=== PATIENT | female | born 2000 | race African-American/Black ===

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

== ENCOUNTER → 2022-04-16 19:49 | Emergency (ER) | payer OTHER, MEDICAID | END | disposition left against medical advice (07) | LOC: ER 19:49 | DX: R05.9 Cough, unspecified (principal); R09.81 Nasal congestion; Z53.21 Procedure and treatment not carried out due to patient leaving prior to being seen by health care provider ==

== ENCOUNTER 2022-04-22 11:31 | Emergency (ER) | payer OTHER, MEDICAID ==
[~2022-04-22] VITALS: Ht 167.6 cm; Wt 90.0 kg
[2022-04-22 12:59] VITALS: BP 130/95
[2022-04-22] MEDS ORDERED: ALBUTEROL SULF 2.5 MG/0.5ML(0.5%) NEB SOLN NEB ONE (13:15)
[2022-04-22] MEDS ORDERED: IPRATROPIUM BROM 0.5 MG/2.5ML INH SOL NEB ONE (13:15)
[2022-04-22] MEDS ORDERED: PROM1SOL4 PO (14:11)
[2022-04-22] MEDS ORDERED: AZIT500T66 PO (14:11)
[2022-04-22] MEDS ORDERED: ALBU108A5 IN (14:11)
== END 2022-04-22 14:37 | disposition home or self-care (01) ==
LOC: ER 11:31
DX: R05.9 Cough, unspecified (principal); J20.9 Acute bronchitis, unspecified; R07.89 Other chest pain
CPT/HCPCS: 71046; 93005; 94640; 99283; J7644

== ENCOUNTER 2024-01-01 14:17 | Emergency (ER) | payer OTHER, MEDICAID ==
[~2024-01-01] VITALS: Ht 172.7 cm; Wt 99.7 kg
[~2024-01-01 14:17] MED LIST: ALBU108A5 IN; AZIT500T66 PO; PROM1SOL4 PO
[2024-01-01] MEDS ORDERED: CYCL-837 PO (15:17)
[2024-01-01] MEDS ORDERED: IBUP-1455 PO (15:17)
[2024-01-01 15:21] VITALS: BP 140/90; PULSE 85; RESP 16; TEMP 98; O2SAT 98
== END 2024-01-01 15:18 | disposition home or self-care (01) ==
LOC: ER 14:25
DX: S16.1XXA Strain of muscle, fascia and tendon at neck level, initial encounter (principal); M54.50 Low back pain, unspecified; M25.512 Pain in left shoulder; V43.62XA Car passenger injured in collision with other type car in traffic accident, initial encounter; Y93.89 Activity, other specified; Y92.488 Other paved roadways as the place of occurrence of the external cause; Y99.8 Other external cause status

== ENCOUNTER 2024-11-18 16:23 | Emergency (ER) | payer MEDICAID, OTHER ==
[~2024-11-18] VITALS: Ht 170.2 cm; Wt 100.1 kg
[~2024-11-18 16:23] MED LIST changes: +CYCL-837 PO; +IBUP-1455 PO
[2024-11-18 16:32] VITALS: BP 129/68; PULSE 97; RESP 16; TEMP 98.7; O2SAT 97
[2024-11-18] MEDS ORDERED: IBUP-1455 PO (17:09)
[2024-11-18] MEDS ORDERED: AUG875T PO (17:09)
[2024-11-18] MEDS ORDERED: ACET500T58 PO (17:09)
--- NOTE | 2024-11-18 17:10 | ED.PDOC ---
Eye-HPI HPI Comments Patient is a pleasant but morbidly obese 24-year-old female who arrives the ED today for evaluation of a upper left-sided dental concern that has been ongoing for the past week. Patient states she has had pain and swelling in the left upper portion of her dentition. Patient denies any fever nausea or vomiting. Patient states she contacted her dentist, but she does not have an appointment for at least a week. Vital signs were stable at arrival. Chief Complaint: Tooth Pain Time Seen by MD: 17:02 Primary Care Provider: NONE Reviewed Notes: Nurses Notes Allergies: Coded Allergies: NO KNOWN ALLERGIES (Unverified , 03/13/19) Home Meds Active Scripts Ibuprofen Micronized (Ibuprofen) 800 Mg Tab, 800 MG PO TID PRN, #40 TAB Prov:BERNARDO CALZADA 01/01/24 Cyclobenzaprine Hcl (Cyclobenzaprine Hcl) 5 Mg Tab, 1 TAB PO QPM PRN, #30 TAB Prov:BERNARDO CALZADA 01/01/24 Promethazine-Dm (Promethazine Dm 6.25-15 mg/5Ml) 1 Moira Moira, 5 ML PO TID, #150 ML Prov:MANUEL KERN 04/22/22 Albuterol Sulfate (Albuterol Sulfate Hfa) 108 Mcg/Act Aer, 108 MCG IN DAILY, #90 AER Prov:MANUEL KERN 04/22/22 Azithromycin (Azithromycin) 500 Mg Tab, 1 TAB PO DAILY, #5 TAB Prov:MANUEL KERN 04/22/22 Information Source: Patient Mode of Arrival: Ambulatory Timing: Weeks Duration: Since onset Quality: Pain Past Medical History PAST MEDICAL HISTORY: Denies Surgical History: Denies all surgeries CRUSHER History: Denies all CRUSHER Hx Family History Family History: Reviewed,noncontributory to illness Social History Smoker: Non-Smoker Alcohol: Denies ETOH Use Drugs: Denies Drug Use Lives In: Home Constitutional: denies: chills, diaphoresis, fatigue, fever, malaise, sweats, weakness, others EENTM: reports: others (Upper left-sided dental pain and swelling); denies: blurred vision, double vision, ear bleeding, ear discharge, ear drainage, ear pain, ear ringing, eye pain, eye redness, hearing loss, mouth pain, mouth swelling, nasal discharge, nose bleeding, nose congestion, nose pain, photophobia, tearing, throat pain, throat swelling, voice changes Respiratory: denies: cough, hemoptysis, orthopnea, SOB at rest, shortness of breath, SOB with excertion, stridor, wheezing, others Cardiovascular: denies: chest pain, dizzy spells, diaphoresis, Dyspnea on exertion, edema, irregular heart beat, left arm pain, lightheadedness, palpitations, PND, syncope, others Gastrointestinal: denies: abdomen distended, abdominal pain, blood streaked bowels, constipated, diarrhea, dysphagia, difficulty swallowing, hematemesis, melena, nausea, poor appetite, poor fluid intake, rectal bleeding, rectal pain, vomiting, others Genitourinary: denies: abnormal vagina bleeding, burning, dyspareunia, dysuria, flank pain, frequency, hematuria, incontinence, pain, , vagina discharge, urgency, others Neurological: denies: dizziness, fainting, headache, left sided numbness, left sided weakness, numbness, paresthesia, pre-existing deficit, right sided numbness, right sided weakness, seizure, speech problems, tingling, tremors, weakness, others Musculoskeletal: denies: back pain, gout, joint pain, joint swelling, muscle pain, muscle stiffness, neck pain, others Integumetry: denies: bruises, change in color, change in hair/nails, dryness, laceration, lesions, lumps, rash, wounds, others Allergic/Immunocompromised: denies: Difficulty Healing, Frequent Infections, Hives, Itching, others Hematologic/Lymphatic: denies: anemia, blood clots, easy bleeding, easy bruising, swollen glands, others Endocrine: denies: excessive hunger, excessive sweating, excessive thirst, excessive urination, flushing, intolerance to cold, intolerance to heat, unexplained weight gain, unexplained weight loss, others Psychiatric: denies: anxiety, bipolar disorder, depression, hopeless, panic disorder, schizophrenia, sleepless, suicidal, others Physical Exam General Appearance: Mild Distress (Moderate distress due to dental concerns. Patient declined the need for any pain medication while at the facility.), Obese HEENT: Pharynx Normal, TMs Normal, Other (Patient displays a developing abscess to tooth 13. Possible fracture noted. Localized edema and erythema. No ex pressive pus noted. Mild facial swelling. ) Neck: Full Range of Motion, Non-Tender, Normal, Normal Inspection Respiratory: Chest Non-Tender, Lungs Clear, No Accessory Muscle Use, No Respiratory Distress, Normal Breath Sounds Cardiovascular: No Edema, No JVD, No Murmur, No Gallop, Normal Peripheral Pulses, Regular Rate/Rhythm Breast Exam: Deferred Gastrointestinal: No Organomegaly, Non Tender, No Pulsatile Mass, Normal Bowel Sounds, Soft Genitalia: Deferred Pelvic: Deferred Rectal: Deferred Extremities: No calf tenderness, Normal capillary refill, Normal inspection, Normal range of motion, Non-tender, No pedal edema Neurologic: Alert, No Motor Deficits, Normal Affect, Normal Mood, No Sensory Deficits Cerebellar Function: Normal Reflexes: Normal Skin: Dry, Normal Color, Warm Lymphatic: No Adenopathy Was a procedure done? Was a procedure done?: No EENT DIFF Eye: N/A Mouth: Other (Dental abscess, dental homar, dental fracture) X-Ray, Labs, Meds, VS Vital Signs Date Time Temp Pulse Resp B/P (MAP) Pulse Ox O2 Delivery O2 Flow Rate FiO2 11/18/24 16:32 98.7 97 16 129/68 (88) 97 98.7 X-Ray, Labs, Meds, VS Comment Discussed the patient's complaints with her. Advised that she needs to utilize her antibiotics as directed until completion and additionally, follow up with her dentist for definitive evaluation and management. Time of 1ST Reevaluation: 17:08 Reevaluation 1ST: Unchanged Consultation: PCP, Other (Dentist) Patient Education/Counseling: Diagnosis, Treatment Family Education/Counseling: Diagnosis, Treatment Departure 1 Departure Time of Disposition: 17:08 Impression: Primary Impression: Dental abscess Disposition: 01 HOME / SELF CARE / HOMELESS Condition: Stable Additional Instructions: Advise utilizing antibiotics as directed until completion. Pain medication as needed. Patient needs to follow up with dentist for definitive evaluation and management. e-Prescriptions Acetaminophen (Acetaminophen) 500 Mg Tab 500 MG PO Q4HP PRN, #30 TAB Prov: JUAN DILL PAC 11/18/24 Ibuprofen Micronized (Ibuprofen) 800 Mg Tab 800 MG PO Q8HP PRN, #30 TAB Prov: JUAN DILL PAC 11/18/24 Amoxicillin & Pot Clavulanate (AUGMENTIN TABLET) 875 Mg Tb 875 MG PO BID for 10 Days, #20 TAB Prov: JUAN DILL PAC 11/18/24 Discharged With: Self Critical Care Note Critical Care Time?: No Stability Stability form required: No Heart Score Heart Score: Heart Score Response (Comments) Value History N/A 0 EKG N/A 0 Age N/A 0 Risk Factors N/A 0 Troponin N/A 0 Total 0 JUAN DILL PAC Nov 18, 2024 17:10
== END 2024-11-18 17:17 | disposition home or self-care (01) ==
LOC: ER 16:25
DX: K04.7 Periapical abscess without sinus (principal); E66.01 Morbid (severe) obesity due to excess calories; Z79.899 Other long term (current) drug therapy

== ENCOUNTER 2024-12-18 14:05 | Emergency (ER) | payer MEDICAID ==
[~2024-12-18] VITALS: Ht 170.2 cm; Wt 97.7 kg
[~2024-12-18 14:05] MED LIST changes: +ACET500T58 PO; +AUG875T PO
[2024-12-18] MEDS ORDERED: PRED20TA2 PO (15:21)
--- NOTE | 2024-12-18 15:21 | ED.PDOC ---
Eye-HPI HPI Comments Left tooth Chief Complaint: Tooth Pain Time Seen by MD: 14:13 Primary Care Provider: NONE Allergies: Coded Allergies: NO KNOWN ALLERGIES (Unverified , 03/13/19) Home Meds Active Scripts Acetaminophen (Acetaminophen) 500 Mg Tab, 500 MG PO Q4HP PRN, #30 TAB Prov:JUAN DILL PAC 11/18/24 Ibuprofen Micronized (Ibuprofen) 800 Mg Tab, 800 MG PO Q8HP PRN, #30 TAB Prov:ANIYAHJUAN KAY PAC 11/18/24 Amoxicillin & Pot Clavulanate (AUGMENTIN TABLET) 875 Mg Tb, 875 MG PO BID for 10 Days, #20 TAB Prov:ANIYAHJUAN KAY PAC 11/18/24 Ibuprofen Micronized (Ibuprofen) 800 Mg Tab, 800 MG PO TID PRN, #40 TAB Prov:BERNARDO CALZADA IT ARCHITECTURE ANALYST 01/01/24 Cyclobenzaprine Hcl (Cyclobenzaprine Hcl) 5 Mg Tab, 1 TAB PO QPM PRN, #30 TAB Prov:BERNARDO CALZADA IT ARCHITECTURE ANALYST 01/01/24 Promethazine-Dm (Promethazine Dm 6.25-15 mg/5Ml) 1 Moira Moira, 5 ML PO TID, #150 ML Prov:MANUEL KERN 04/22/22 Albuterol Sulfate (Albuterol Sulfate Hfa) 108 Mcg/Act Aer, 108 MCG IN DAILY, #90 AER Prov:MANUEL KERN 04/22/22 Azithromycin (Azithromycin) 500 Mg Tab, 1 TAB PO DAILY, #5 TAB Prov:MANUEL KERN 04/22/22 Mode of Arrival: Ambulatory Past Medical History PAST MEDICAL HISTORY: Denies Surgical History: Denies all surgeries GRANULATOR History: Denies all GRANULATOR Hx Family History Family History: Reviewed,noncontributory to illness Social History Smoker: Non-Smoker Alcohol: Denies ETOH Use Drugs: Denies Drug Use Lives In: Home X-Ray, Labs, Meds, VS Vital Signs Date Time Temp Pulse Resp B/P (MAP) Pulse Ox O2 Delivery O2 Flow Rate FiO2 12/18/24 14:22 98.7 8 20 118/73 (88) 97 98.7 SEPSIS Sepsis Screen Date sepsis recognized/suspect: Dec 18, 2024 Time Sepsis recognized/suspect: 1421 Recent Procedure: No On Antibiotic Therapy: No Respiratory Rate >20: No Heart Rate >90: No Temp<36 C (96.8 F) or >38.3 C: No SBP <90 or MAP <65 mmHG: No New Acute Mental Status Change: No Is the patient on CPAP, BIPAP,: No Vital Signs Date Time Temp Pulse Resp B/P (MAP) Pulse Ox O2 Delivery O2 Flow Rate FiO2 12/18/24 14:22 98.7 8 20 118/73 (88) 97 98.7 Departure 1 Departure Time of Disposition: 15:20 Impression: Primary Impression: Swelling of face Disposition: 01 HOME / SELF CARE / HOMELESS Condition: Stable e-Prescriptions Prednisone (Prednisone) 20 Mg Tab 40 MG PO DAILY for 5 Days, #10 TAB 0 Refills Prov: VILMA AN NP 12/18/24 VILMA AN NP Dec 18, 2024 15:21
--- NOTE | 2024-12-18 15:26 | ED.PDOC ---
Eye-HPI HPI Comments 24 year old female with no past medical history presents to the emergency department with a chief complaint of tooth pain onset 3 days. Patient began experiencing Lt sided tooth pain for the past 3 days, was seen at urgent care and prescribed antibiotics. Patient noticed swelling, abscess by tooth. Patient was prescribed [id number] by urgent care. Has a dental appointment on 12/21/24 at [facility]. No other symptoms or modifying factors present at this time. Denies fevers, chills, nausea, vomiting, sweats Denies headache, dizziness, blurry vision Chief Complaint: Tooth Pain Time Seen by MD: 15:00 Primary Care Provider: NONE Reviewed Notes: Nurses Notes, Medications, Allergies Allergies: Coded Allergies: NO KNOWN ALLERGIES (Unverified , 03/13/19) Home Meds Active Scripts Prednisone (Prednisone) 20 Mg Tab, 40 MG PO DAILY for 5 Days, #10 TAB 0 Refills Prov:VILMA AN SUBSTANCE ABUSE THERAPIST 12/18/24 Acetaminophen (Acetaminophen) 500 Mg Tab, 500 MG PO Q4HP PRN, #30 TAB Prov:JUAN DILL PAC 11/18/24 Ibuprofen Micronized (Ibuprofen) 800 Mg Tab, 800 MG PO Q8HP PRN, #30 TAB Prov:JUAN DILL PAC 11/18/24 Amoxicillin & Pot Clavulanate (AUGMENTIN TABLET) 875 Mg Tb, 875 MG PO BID for 10 Days, #20 TAB Prov:JUAN DILL PAC 11/18/24 Ibuprofen Micronized (Ibuprofen) 800 Mg Tab, 800 MG PO TID PRN, #40 TAB Prov:BERNARDO CALZADAP 01/01/24 Cyclobenzaprine Hcl (Cyclobenzaprine Hcl) 5 Mg Tab, 1 TAB PO QPM PRN, #30 TAB Prov:BERNARDO CALZADAP 01/01/24 Promethazine-Dm (Promethazine Dm 6.25-15 mg/5Ml) 1 Moira Moira, 5 ML PO TID, #150 ML Prov:MANUEL KERN 04/22/22 Albuterol Sulfate (Albuterol Sulfate Hfa) 108 Mcg/Act Aer, 108 MCG IN DAILY, #90 AER Prov:MANUEL KERN 04/22/22 Azithromycin (Azithromycin) 500 Mg Tab, 1 TAB PO DAILY, #5 TAB Prov:MANUEL KERN 04/22/22 Information Source: Patient Mode of Arrival: Ambulatory Timing: Days Prehospital treatment: Treatment (antibiotics) Quality: Pain Lids: Normal Conjunctiva: Normal Cornea: Normal Pupils: Normal EOM: Normal Fundus: Normal Slit lamp exam: Normal Anterior chamber: Normal Nose: Normal Sinuses: Normal Oropharynx: Normal Onset: Spontaneous Past Medical History PAST MEDICAL HISTORY: Denies Surgical History: Denies all surgeries HOT MIX OPERATOR History: Denies all HOT MIX OPERATOR Hx Family History Family History: Reviewed,noncontributory to illness Social History Smoker: Non-Smoker Alcohol: Denies ETOH Use Drugs: Denies Drug Use Lives In: Home EENTM: reports: others (LT sided tooth pain) Physical Exam General Appearance: Normal HEENT: Normal ENT Inspection, Pharynx Normal, TMs Normal Neck: Full Range of Motion, Non-Tender, Normal, Normal Inspection Respiratory: Chest Non-Tender, Lungs Clear, No Accessory Muscle Use, No Respiratory Distress, Normal Breath Sounds Cardiovascular: No Edema, No JVD, No Murmur, No Gallop, Normal Peripheral Pulses, Regular Rate/Rhythm Breast Exam: Deferred Gastrointestinal: No Organomegaly, Non Tender, No Pulsatile Mass, Normal Bowel Sounds, Soft Genitalia: Deferred Pelvic: Deferred Rectal: Deferred Extremities: No calf tenderness, Normal capillary refill, Normal inspection, Normal range of motion, Non-tender, No pedal edema Musculoskeletal : Apperance: Normal Neurologic: Alert, armoring machine operator II-XII nml as Tested, No Motor Deficits, Normal Affect, Normal Mood, No Sensory Deficits Cerebellar Function: Normal Reflexes: Normal Skin: Dry, Normal Color, Warm Lymphatic: No Adenopathy Was a procedure done? Was a procedure done?: No X-Ray, Labs, Meds, VS Vital Signs Date Time Temp Pulse Resp B/P (MAP) Pulse Ox O2 Delivery O2 Flow Rate FiO2 12/18/24 14:22 98.7 8 20 118/73 (88) 97 98.7 X-Ray, Labs, Meds, VS Comment 24 year old female with no past medical history presents to the emergency department with a chief complaint of tooth pain onset 3 days. Patient arrives alert and oriented, ABC's intact, afebrile, vital signs stable, saturating well in room air Additional MDM Review of External, Non-ED records: External records reviewed. Discussion with independent historian (EMS, family) history obtained from the patient/parents (if applicable) at bedside Chronic conditions affecting care: None Social determinants of health affecting care: None Consideration of admission (observation or admission): I considered escalation of care to admission for this patient, however given the reassuring workup, the patient is safe for outpatient management. Time of 1ST Reevaluation: 15:30 Reevaluation 1ST: Improved Patient Education/Counseling: Diagnosis, Treatment Family Education/Counseling: No Family Present SEPSIS Sepsis Screen Date sepsis recognized/suspect: Dec 18, 2024 Time Sepsis recognized/suspect: 1421 Recent Procedure: No On Antibiotic Therapy: No Respiratory Rate >20: No Heart Rate >90: No Temp<36 C (96.8 F) or >38.3 C: No SBP <90 or MAP <65 mmHG: No New Acute Mental Status Change: No Is the patient on CPAP, BIPAP,: No Vital Signs Date Time Temp Pulse Resp B/P (MAP) Pulse Ox O2 Delivery O2 Flow Rate FiO2 12/18/24 14:22 98.7 8 20 118/73 (88) 97 98.7 Departure 1 Departure e-Prescriptions Prednisone (Prednisone) 20 Mg Tab 40 MG PO DAILY for 5 Days, #10 TAB 0 Refills Prov: VILMA AN NP 12/18/24 Critical Care Note Critical Care Time?: No Stability Stability form required: No Heart Score Heart Score: Heart Score Response (Comments) Value History N/A 0 EKG N/A 0 Age N/A 0 Risk Factors N/A 0 Troponin N/A 0 Total 0 I personally scribed for VILMA AN NP ([email or web address]) on 12/18/24 at 15:26. Electronically submitted by Candace May ([email or web address]). VILMA AN NP Dec 18, 2024 15:26
[2024-12-18 15:59] VITALS: BP 120/65; PULSE 87; RESP 20; TEMP 97.6; O2SAT 99
== END 2024-12-18 16:01 | disposition home or self-care (01) ==
LOC: ER 14:05
DX: R22.0 Localized swelling, mass and lump, head (principal); Z79.52 Long term (current) use of systemic steroids; Z79.899 Other long term (current) drug therapy